=== PATIENT | male | born 1960 | race Asian ===

== ENCOUNTER 2022-04-11 05:36 | Day surgery (SDC) | payer OTHER ==
[2022-04-09 10:12] LABS: COVID AG,FIA SOURCE NASOPHARYNGEAL
[2022-04-09 10:13] LABS: BASOPHILS % (AUTO) 0.6 % (0.0-2.0); EOSINOPHILS % (AUTO) 6.3 % (1.0-6.0); HEMATOCRIT 45.3 % (41-53); HEMOGLOBIN 14.8 g/dL (13.5-17.5); LYMPHOCYTES # (AUTO) 1.8 K/uL (1.0-4.8); LYMPHOCYTES % (AUTO) 22.7 % (22.0-44.0); MEAN CORPUSCULAR HGB CONC 32.6 G/dL (31.0-37.0); MEAN CORPUSCULAR VOLUME 80 fL (80-100); MONOCYTES # (AUTO) 0.7 K/uL (0.1-1.0); MONOCYTES % (AUTO) 9.3 % (2.0-9.0); NEUTROPHILS # (AUTO) 4.9 K/uL (1.8-7.7); NEUTROPHILS % (AUTO) 61.1 % (40.0-70.0); PLATELET COUNT (AUTO) 222 K/uL (150-450); RED BLOOD CELL COUNT(AUTO) 5.68 MIL/uL (4.50-5.90); RED CELL DISTRIBUTION WIDTH 16.5 % (11.5-14.5)
[2022-04-09 10:23] LABS: ANION GAP 6 mmol/L (8-16); CALCIUM, TOTAL 8.6 mg/dL (8.8-10.5); CARBON DIOXIDE 29 mmol/L (22-29); CHLORIDE 102 mmol/L (98-107); CREATININE 0.99 mg/dL (0.60-1.30); GLUCOSE,RANDOM 168 mg/dL (70-110); POTASSIUM 5.2 mmol/L (3.5-5.1); SODIUM SERUM 137 mmol/L (136-145); UREA NITROGEN, BLOOD 11 mg/dL (7-18)
[2022-04-09 10:25] LABS: GLOMERULAR FILTR. RATE CALC > 60 mL/min (>60)
[2022-04-09 10:29] LABS: ALANINE AMINOTRANSFERASE 29 U/L (12-78); ALBUMIN 3.5 g/dL (3.4-5.0); ALKALINE PHOSPHATASE 69 U/L (46-116); ASPARTATE AMINOTRANSFERASE 29 U/L (15-37); BILIRUBIN,TOTAL 0.5 mg/dL (0.1-1.0); TOTAL PROTEIN, SERUM 7.2 g/dL (6.4-8.2)
[2022-04-09 10:30] LABS: PROTHROMBIN TIME 10.9 SEC (9.4-11.6)
[~2022-04-11] VITALS: Ht 170.2 cm; Wt 95.5 kg
[2022-04-11] MEDS ORDERED: SODIUM CHLORIDE 0.9% 1,000 ML IV ONE (06:00)
[2022-04-11] MEDS ORDERED: SODIUM CHLORIDE 0.9% 1,000 ML ONE (06:43)
[2022-04-11] MEDS ORDERED: ISOS30TA68 PO (06:49)
[2022-04-11] MEDS ORDERED: SACU1TAB PO (06:49)
[2022-04-11] MEDS ORDERED: METF-446 PO (06:49)
[2022-04-11] MEDS ORDERED: SITA100 PO (06:49)
[2022-04-11] MEDS ORDERED: ASPI-1444 PO (06:49)
[2022-04-11] MEDS ORDERED: ATOR20TA65 PO (06:49)
[2022-04-11] MEDS ORDERED: LIDOCAINE/PF 1% 30 ML VIAL ONE (06:56)
[2022-04-11] MEDS ORDERED: HEPARIN SODIUM 1000 UNITS/NS 1,000 ML ONE (06:56)
[2022-04-11] MEDS ORDERED: SODIUM BICARBONATE 50 MEQ/50 ML VIAL ONE (06:56)
[2022-04-11] MEDS ORDERED: IOHEXOL 350 MG/ML 100 ML VIAL ONE (06:56)
[2022-04-11] MEDS ORDERED: DEXTROSE 50%-WATER 25 GM/50 ML SYRINGE IVP ONE (07:30)
[2022-04-11 07:50] VITALS: BP 140/71
[2022-04-11] MEDS ORDERED: FentaNYL CITRATE PF 100 MCG/2 ML VIAL ONE (07:51)
[2022-04-11] MEDS ORDERED: MIDAZOLAM HCL 2 MG/2 ML VIAL ONE (07:51)
[2022-04-11] MEDS ORDERED: IOHEXOL 350 MG/ML 100 ML VIAL IARTER ONE (08:00)
[2022-04-11] MEDS ORDERED: HEPARIN SODIUM 1000 UNITS/NS 1,000 ML IARTER ONE (08:00)
[2022-04-11] MEDS ORDERED: LIDOCAINE 1% 30 ML/SOD BICARB 8.4% 4 ML SQ ONE (08:00)
[2022-04-11] MEDS ORDERED: FentaNYL CITRATE PF 100 MCG/2 ML VIAL IVP ONE (08:15)
[2022-04-11] MEDS ORDERED: MIDAZOLAM HCL 2 MG/2 ML VIAL IVP ONE (08:15)
[2022-04-11 08:29] VITALS: BP 129/70
[2022-04-11 09:02] LABS: GLUCOMETER DEV NAME(LOC) CATH.; GLUCOSE,POINT OF CARE 104 MG/DL (70-110)
[2022-04-11 09:02] LABS: GLUCOMETER DEV NAME(LOC) SDS.; GLUCOSE,POINT OF CARE 68 MG/DL (70-110)
[2022-04-11] MEDS ORDERED: SODIUM CHLORIDE 0.9% 500 ML IV ONE (09:15)
== END 2022-04-11 13:15 | disposition home or self-care (01) ==
LOC: CATHLAB 05:36 → EDSEX 07:30 → CATHLAB 13:15
PROVIDERS: ATTEND Internal Medicine Cardiovascular Disease
DX: R94.39 Abnormal result of other cardiovascular function study (principal); I25.10 Atherosclerotic heart disease of native coronary artery without angina pectoris; E11.9 Type 2 diabetes mellitus without complications; I10 Essential (primary) hypertension; I25.82 Chronic total occlusion of coronary artery; I27.20 Pulmonary hypertension, unspecified; Z79.01 Long term (current) use of anticoagulants; Z79.899 Other long term (current) drug therapy; Z98.890 Other specified postprocedural states; Z95.5 Presence of coronary angioplasty implant and graft
CPT/HCPCS: 80053; 85025; 85610; 85730; 36415; 93005; 87426; 93460; 82962; 99152; 99153; C9803; C1760; J3010; J1644; J3490 ×2; J2250; Q9967; J7030

== ENCOUNTER 2022-10-31 07:11 | Day surgery (SDC) | payer OTHER ==
[~2022-10-31] VITALS: Ht 170.2 cm; Wt 90.9 kg
[~2022-10-31 07:11] MED LIST: AMIO200 PO; ASPI-1444 PO; ATOR20TA65 PO; CARV3.1231 PO; ISOS30TA68 PO; METF-446 PO; SACU1TAB PO; SITA100 PO; SODIUM CHLORIDE 0.9% 1,000 ML IV ONE; SPIR-37 PO
[2022-10-31 08:01] LABS: EOSINOPHILS % (AUTO) 2.5 % (1.0-6.0); HEMATOCRIT 35.6 % (41-53); HEMOGLOBIN 11.8 g/dL (13.5-17.5); LYMPHOCYTES # (AUTO) 0.8 K/uL (1.0-4.8); LYMPHOCYTES % (AUTO) 15.3 % (22.0-44.0); MEAN CORPUSCULAR HEMOGLOBIN 27.3 pg (26.0-34.0); MEAN CORPUSCULAR VOLUME 83 fL (80-100); MONOCYTES # (AUTO) 0.6 K/uL (0.1-1.0); NEUTROPHILS # (AUTO) 3.6 K/uL (1.8-7.7); NEUTROPHILS % (AUTO) 70.2 % (40.0-70.0); PLATELET COUNT (AUTO) 166 K/uL (150-450); RED BLOOD CELL COUNT(AUTO) 4.31 MIL/uL (4.50-5.90); RED CELL DISTRIBUTION WIDTH 20.1 % (11.5-14.5)
[2022-10-31] MEDS ORDERED: ETHYL ALCOHOL 62% ANTISEPTIC NASAL SANITIZER 0.6 ML AMPUL NASAL ONE (08:15)
[2022-10-31 08:25] LABS: ANION GAP 9 mmol/L (8-16); CALCIUM, TOTAL 8.6 mg/dL (8.8-10.5); CARBON DIOXIDE 26 mmol/L (22-29); CHLORIDE 99 mmol/L (98-107); CREATININE 1.05 mg/dL (0.60-1.30); GLOMERULAR FILTR. RATE CALC > 60 mL/min (>60); GLUCOSE,RANDOM 208 mg/dL (70-110); POTASSIUM 3.5 mmol/L (3.5-5.1); SODIUM SERUM 134 mmol/L (136-145); UREA NITROGEN, BLOOD 8 mg/dL (7-18)
[2022-10-31 08:31] LABS: ALANINE AMINOTRANSFERASE 49 U/L (12-78); ALKALINE PHOSPHATASE 128 U/L (46-116); ASPARTATE AMINOTRANSFERASE 27 U/L (15-37); BILIRUBIN,TOTAL 1.3 mg/dL (0.1-1.0); TOTAL PROTEIN, SERUM 6.9 g/dL (6.4-8.2)
[2022-10-31 08:45] LABS: INR 1.1 (0.9-1.1); PROTHROMBIN TIME 11.9 SEC (9.4-11.6)
[2022-10-31 09:21] LABS: COVID AG,FIA SOURCE NASAL SWAB
[2022-10-31] MEDS ORDERED: SODIUM BICARBONATE 50 MEQ/50 ML VIAL ONE (11:44)
[2022-10-31] MEDS ORDERED: IOHEXOL 300 MG/ML 50 ML VIAL ONE (11:44)
[2022-10-31] MEDS ORDERED: LIDOCAINE/PF 1% 30 ML VIAL ONE ×2 (11:44→12:22)
[2022-10-31] MEDS ORDERED: IOHEXOL 300 MG/ML 50 ML VIAL ICOR ONE (11:45)
[2022-10-31] MEDS ORDERED: MIDAZOLAM HCL 2 MG/2 ML VIAL IVP ONE (11:45)
[2022-10-31] MEDS ORDERED: LIDOCAINE 1% 30 ML/SOD BICARB 8.4% 4 ML SQ ONE (11:45)
[2022-10-31] MEDS ORDERED: HEPARIN SODIUM 1000 UNITS/NS 1,000 ML IARTER ONE (11:45)
[2022-10-31] MEDS ORDERED: FentaNYL CITRATE PF 100 MCG/2 ML VIAL IVP ONE (11:45)
[2022-10-31] MEDS ORDERED: DiphenhydrAMINE HCL 50 MG/ML VIAL IVP ONE (11:45)
[2022-10-31] MEDS ORDERED: SODIUM CHLORIDE 0.9% 500 ML IV ONE (11:45)
[2022-10-31] MEDS ORDERED: DiphenhydrAMINE HCL 50 MG/ML VIAL ONE (11:46)
[2022-10-31] MEDS ORDERED: MIDAZOLAM HCL 2 MG/2 ML VIAL ONE (11:47)
[2022-10-31] MEDS ORDERED: FentaNYL CITRATE PF 100 MCG/2 ML VIAL ONE (11:47)
[2022-10-31 12:39] VITALS: BP 165/90
== END 2022-10-31 16:23 | disposition home or self-care (01) ==
LOC: 5S 07:11 → UNDOADMIN 07:11 → SURGERY 07:11 → EDSTATUS 09:00 → UNDODISIN 15:40 → SURGERY 16:23
PROVIDERS: ATTEND Internal Medicine Clinical Cardiac Electrophysiology
DX: I42.0 Dilated cardiomyopathy (principal); I48.92 Unspecified atrial flutter; I25.10 Atherosclerotic heart disease of native coronary artery without angina pectoris; I25.5 Ischemic cardiomyopathy; E11.9 Type 2 diabetes mellitus without complications; E78.00 Pure hypercholesterolemia, unspecified; I10 Essential (primary) hypertension; Z20.822 Contact with and (suspected) exposure to COVID-19; Z95.1 Presence of aortocoronary bypass graft; Z79.899 Other long term (current) drug therapy; Z79.01 Long term (current) use of anticoagulants; Z98.890 Other specified postprocedural states; Z95.5 Presence of coronary angioplasty implant and graft; Z72.89 Other problems related to lifestyle; Z87.891 Personal history of nicotine dependence
CPT/HCPCS: 33249; 80053; 85025; 85610; 85730; 36415; 87081; 99152; 99153; 93005 ×2; 71045; 87426; C1892; C1722; C1899; J0690; J1200; J3010; J3490 ×2; J2250; Q9967; 76000